=== PATIENT | female | born 1930 | race Caucasian/White ===

== ENCOUNTER 2017-10-06 09:57 | Inpatient (IN) | payer MEDICARE, OTHER ==
[~2017-10-06] VITALS: Ht 167.6 cm; Wt 70.5 kg
[~2017-10-06 09:57] MED LIST: ASCO500C15 PO; CHLO118M PO; CHOL100046 PO; DOCU-28 PO; HYDR-569 PO; LATA2.5D2 RIGHTEYE; LEVO50TA PO; LIDO700A5 TOP; METO25TA6 PO; RISE35TA PO; RIVA20TA PO; [UNRECOGNIZED DRUG - CODE] PO
[2017-10-06 11:16] LABS: BASOPHILS % (AUTO) 0 % (0-1); EOSINOPHILS # (AUTO) 0.4 X10'3 (0-0.9); EOSINOPHILS % (AUTO) 6.3 % (0-6); HEMATOCRIT 39.9 % (35.0-45.0); LYMPHOCYTES # (AUTO) 0.8 X10'3 (1.1-4.8); MEAN CORPUSCULAR HEMOGLOBIN 33.4 PG (27.0-31.0); MEAN CORPUSCULAR VOLUME 95.5 FL (78-98); MEAN PLATELET VOLUME 9.1 FL (7.4-10.4); MONOCYTES # (AUTO) 0.3 X10'3 (0-0.9); MONOCYTES % (AUTO) 3.9 % (2-12); NEUTROPHILS # (AUTO) 5.6 X10'3 (1.8-7.7); NEUTROPHILS % (AUTO) 78.8 % (42-75); PLATELET COUNT 112 X10'3 (140-440); RED BLOOD COUNT 4.17 X10'6 (4.20-5.60); RED CELL DISTRIBUTION WIDTH 16.1 % (11.5-14.5); WHITE BLOOD COUNT 7.1 X10'3 (4.5-11.0)
[2017-10-06 11:26] LABS: INR 1.2 INR; PARTIAL THROMBOPLASTIN TIME 27 SECONDS (22-32); PROTHROMBIN TIME 12.5 SECONDS (9.0-12.0)
[2017-10-06 11:32] LABS: ALANINE AMINOTRANSFERASE 31 U/L (12-78); ALBUMIN 3.1 G/DL (3.4-5.0); ALBUMIN/GLOBULIN RATIO 0.9 (1.1-1.5); ALKALINE PHOSPHATASE 72 IU/L (46-116); ANION GAP 11 (8-16); ASPARTATE AMINO TRANSFERASE 33 U/L (10-37); BILIRUBIN,TOTAL 0.8 MG/DL (0.1-1.0); BLOOD UREA NITROGEN 16 MG/DL (7-18); BUN/CREATININE RATIO 15.2 (6.6-38.0); CHLORIDE 103 MMOL/L (99-107); CREATININE 1.05 MG/DL (0.40-0.90); GLUCOSE 102 MG/DL (70-104); MAGNESIUM 2.1 MG/DL (1.5-2.4); POTASSIUM 4.2 MMOL/L (3.5-5.1); SODIUM 140 MMOL/L (135-145); TOTAL CARBON DIOXIDE 26.5 MMOL/L (24-32); TOTAL PROTEIN 6.6 G/DL (6.4-8.2); eGFR 50 ML/MIN
[2017-10-06] MEDS ORDERED: normal saline 1000ML IV soln IV ONE (12:10)
[2017-10-06] MEDS ORDERED: levoFLOXACIN-Levaquin 750MG/D5 150 ML IV ONE (12:10)
[2017-10-06] MEDS ORDERED: RISEDRONATE SODIUM 35 MG PO SCH (13:00)
[2017-10-06] MEDS ORDERED: HYDROcodone/acetaminophen 5mg/325mg tablet PO PRN (13:00)
[2017-10-06 17:03] LABS: CLARITY,URINE SLIGHTLY CLOUDY (Clear); COLOR,URINE YELLOW (Yellow); GLUCOSE, URINE NEGATIVE (Neg); KETONES,URINE NEGATIVE (Neg); LEUKOCYTE ESTERASE ,URINE SMALL (Neg); NITRITES, URINE NEGATIVE (Neg); OCCULT BLOOD,URINE NEGATIVE (Neg); PROTEIN,URINE NEGATIVE (Neg); UROBILINOGEN,URINE 0.2 E.U/dL (0.2-1.0)
[2017-10-06 17:05] LABS: UA COLLECTION TYPE OTHER
[2017-10-06] MEDS: rivaroxaban 20mg tablet PO SCH (17:07)
[2017-10-06 17:41] LABS: BACTERIA,URINE 4+ /HPF (Neg); RBC,URINE 0-2 /HPF (0-2); SQUAMOUS EPITHELIAL CELL,UR MANY /LPF (FEW)
[2017-10-06] MEDS ORDERED: methylPREDNISolone sod succ 125mg/2ml vial IV ONE (19:15)
[2017-10-06] MEDS ORDERED: pantoprazole 40 MG vial IV ONE (19:15)
[2017-10-06] MEDS: K and/or MAG REPLACEMENT MC SCH (19:25)
[2017-10-06] MEDS ORDERED: potassium Cl 40MEQ/NS 500ml 500 ML IV PRN ×2 (19:25)
[2017-10-06] MEDS ORDERED: magnesium Cl slow-release 64mg tablet PO PRN (19:25)
[2017-10-06] MEDS ORDERED: potassium Cl 20 mEq SR tablet PO PRN ×2 (19:25)
[2017-10-06] MEDS ORDERED: magnesium 4gm in 100ml NS 100 ML IV PRN (19:25)
[2017-10-06] MEDS ORDERED: magnesium 2GM in 50ml NS 50 ML IV PRN (19:25)
[2017-10-06] MEDS: ascorbic acid 500mg tablet PO SCH (20:00)
[2017-10-06] MEDS: normal saline 1000ml 1,000 ML IV SCH (20:31)
[2017-10-06] MEDS: docusate sod 100mg capsule PO SCH (20:32)
[2017-10-06] MEDS: metoprolol tartrate 12.5mg (1/2 tablet) PO SCH (20:32)
[2017-10-06] MEDS: heparin, porcine 5000 units/ml vial SQ SCH (20:36)
[2017-10-06] MEDS: latanoprost 0.005% 2.5ml ophthalmic drops RIGHTEYE SCH (21:00)
[2017-10-06] MEDS: methylPREDNISolone sod succ 125mg/2ml vial IV SCH (21:00)
[2017-10-06] MEDS: ipratropium/albuterol 3ml nebule NEB SCH (21:37)
[2017-10-06 21:51] LABS: ABG BASE EXCESS -3.4 mmol/L (-2.0-3.0); ABG HCO3 20.2 mmol/L (22.0-26.0); ABG OXYGEN SATURATION 92.6 % (95-98); ABG PCO2 (T) 31.1 mmHg (32.0-45.0); ABG PH (T) 7.426 (7.350-7.450); ABG PO2 (T) 63.6 mmHg (83-108); ALLEN'S TEST Positive; FCOHb 0.6 % (0.5-1.5); FMetHb 0.1 % (0.3-1.12); PATIENT TEMPERATURE 36.3; RESPIRATORY RATE (OBSERVED) 18 b/min; TOTAL HEMOGLOBIN 13.1 G/dl (12.0-16.0)
[2017-10-07 02:30] VITALS: BP 147/97
[2017-10-07 05:05] LABS: INR 1.5 INR; PROTHROMBIN TIME 15.4 SECONDS (9.0-12.0)
[2017-10-07 05:07] LABS: BASOPHILS % (AUTO) 0 % (0-1); EOSINOPHILS # (AUTO) 0.1 X10'3 (0-0.9); EOSINOPHILS % (AUTO) 1.2 % (0-6); HEMATOCRIT 35.9 % (35.0-45.0); HEMOGLOBIN 12.4 g/dl (12.0-16.0); LYMPHOCYTES # (AUTO) 0.3 X10'3 (1.1-4.8); LYMPHOCYTES % (AUTO) 5.6 % (21-51); MEAN CORPUSCULAR HEMOGLOBIN 32.8 PG (27.0-31.0); MEAN CORPUSCULAR HGB CONC 34.6 % (33.0-36.5); MEAN CORPUSCULAR VOLUME 94.9 FL (78-98); MEAN PLATELET VOLUME 9.6 FL (7.4-10.4); MONOCYTES % (AUTO) 0.7 % (2-12); NEUTROPHILS # (AUTO) 4.9 X10'3 (1.8-7.7); NEUTROPHILS % (AUTO) 92.5 % (42-75); PLATELET COUNT 92 X10'3 (140-440); RED BLOOD COUNT 3.78 X10'6 (4.20-5.60); RED CELL DISTRIBUTION WIDTH 16.6 % (11.5-14.5); WHITE BLOOD COUNT 5.3 X10'3 (4.5-11.0)
[2017-10-07] MEDS: normal saline 1000ml 1,000 ML IV SCH ×2 (05:15→07:23)
[2017-10-07 05:31] LABS: ALBUMIN 2.8 G/DL (3.4-5.0); ANION GAP 13 (8-16); BLOOD UREA NITROGEN 17 MG/DL (7-18); BUN/CREATININE RATIO 17.7 (6.6-38.0); CALCIUM 8.2 MG/DL (8.5-10.1); CHLORIDE 107 MMOL/L (99-107); CREATININE 0.96 MG/DL (0.40-0.90); GLUCOSE 200 MG/DL (70-104); MAGNESIUM 1.8 MG/DL (1.5-2.4); POTASSIUM 3.8 MMOL/L (3.5-5.1); SODIUM 141 MMOL/L (135-145); TOTAL CARBON DIOXIDE 21.5 MMOL/L (24-32); eGFR 55 ML/MIN
[2017-10-07] MEDS: metoprolol tartrate 12.5mg (1/2 tablet) PO SCH ×2 (07:17→20:59)
[2017-10-07] MEDS: calcium carbonate/vitamin D3 tablet PO SCH (07:18)
[2017-10-07] MEDS: vitamin D (cholecalciferol) 1,000 unit tablet PO SCH (07:18)
[2017-10-07] MEDS: levoTHYROXINE 25mcg tablet PO SCH (07:20)
[2017-10-07] MEDS: methylPREDNISolone sod succ 125mg/2ml vial IV SCH ×3 (07:20→21:00)
[2017-10-07] MEDS: LIDOcaine 5% patch TP SCH (07:21)
[2017-10-07] MEDS: levoFLOXACIN-Levaquin 750MG/D5 150 ML IV SCH (07:21)
[2017-10-07] MEDS: heparin, porcine 5000 units/ml vial SQ SCH ×2 (07:22→20:00)
[2017-10-07] MEDS: ascorbic acid 500mg tablet PO SCH ×2 (07:23→21:19)
[2017-10-07] MEDS: docusate sod 100mg capsule PO SCH ×2 (07:28→20:00)
[2017-10-07 07:30] VITALS: BP 163/93
[2017-10-07] MEDS: K and/or MAG REPLACEMENT MC SCH (08:00)
[2017-10-07] MEDS: ipratropium/albuterol 3ml nebule NEB SCH ×2 (09:18→19:48)
[2017-10-07] MEDS ORDERED: Permethrin Cream 60gm TP ONE (12:35)
[2017-10-07] MEDS ORDERED: Ivermectin 3mg tablet PO SCH (12:35)
[2017-10-07 12:45] VITALS: BP 137/72
[2017-10-07] MEDS ORDERED: furosemide 20 MG/2 ML vial IV ONE (16:15)
[2017-10-07] MEDS: rivaroxaban 20mg tablet PO SCH (17:23)
[2017-10-07 19:15] VITALS: BP 156/80
[2017-10-07] MEDS: lactobacillus rhamnosus 10,000 MMU CELLS/CAPSULE PO SCH (20:59)
[2017-10-07] MEDS: latanoprost 0.005% 2.5ml ophthalmic drops RIGHTEYE SCH (21:00)
[2017-10-07 23:00] VITALS: BP 145/84
[2017-10-08 08:00] VITALS: BP 152/85
[2017-10-08] MEDS: heparin, porcine 5000 units/ml vial SQ SCH (08:00)
[2017-10-08] MEDS: LIDOcaine 5% patch TP SCH (08:00)
[2017-10-08] MEDS: K and/or MAG REPLACEMENT MC SCH (08:00)
[2017-10-08] MEDS: docusate sod 100mg capsule PO SCH ×2 (08:00→20:00)
[2017-10-08] MEDS: ipratropium/albuterol 3ml nebule NEB SCH ×3 (08:43→19:34)
[2017-10-08] MEDS: levoFLOXACIN-Levaquin 750MG/D5 150 ML IV SCH (09:40)
[2017-10-08] MEDS: calcium carbonate/vitamin D3 tablet PO SCH (09:41)
[2017-10-08] MEDS: methylPREDNISolone sod succ 125mg/2ml vial IV SCH ×3 (09:41→20:35)
[2017-10-08] MEDS: metoprolol tartrate 12.5mg (1/2 tablet) PO SCH ×2 (09:41→20:34)
[2017-10-08] MEDS: levoTHYROXINE 25mcg tablet PO SCH (09:41)
[2017-10-08] MEDS: vitamin D (cholecalciferol) 1,000 unit tablet PO SCH (09:41)
[2017-10-08] MEDS: lactobacillus rhamnosus 10,000 MMU CELLS/CAPSULE PO SCH ×2 (09:42→20:35)
[2017-10-08] MEDS: ascorbic acid 500mg tablet PO SCH ×2 (09:44→20:35)
[2017-10-08 11:00] VITALS: BP 142/83
[2017-10-08] MEDS: rivaroxaban 20mg tablet PO SCH (17:35)
[2017-10-08 20:00] VITALS: BP 132/76
[2017-10-08] MEDS: latanoprost 0.005% 2.5ml ophthalmic drops RIGHTEYE SCH (20:43)
[2017-10-09] VITALS: BP 141/88
[2017-10-09 07:30] VITALS: BP 165/94
[2017-10-09] MEDS: K and/or MAG REPLACEMENT MC SCH (08:00)
[2017-10-09] MEDS: ipratropium/albuterol 3ml nebule NEB SCH (08:18)
[2017-10-09] MEDS: metoprolol tartrate 12.5mg (1/2 tablet) PO SCH (08:36)
[2017-10-09] MEDS: methylPREDNISolone sod succ 125mg/2ml vial IV SCH ×2 (08:36→13:00)
[2017-10-09] MEDS: vitamin D (cholecalciferol) 1,000 unit tablet PO SCH (08:37)
[2017-10-09] MEDS: levoFLOXACIN-Levaquin 750MG/D5 150 ML IV SCH (08:37)
[2017-10-09] MEDS: docusate sod 100mg capsule PO SCH (08:37)
[2017-10-09] MEDS: calcium carbonate/vitamin D3 tablet PO SCH (08:37)
[2017-10-09] MEDS: lactobacillus rhamnosus 10,000 MMU CELLS/CAPSULE PO SCH (08:37)
[2017-10-09] MEDS: ascorbic acid 500mg tablet PO SCH (08:37)
[2017-10-09] MEDS: levoTHYROXINE 25mcg tablet PO SCH (08:43)
[2017-10-09] MEDS ORDERED: LEVO500T2 PO (15:12)
== END 2017-10-09 16:23 | disposition home or self-care (01) | DRG 291 ==
LOC: ER 09:57 → ED HOLD 12:53 → SUR 3N 10-07 02:47
PROVIDERS: ADMIT Internal Medicine; ATTEND Internal Medicine
DX: I11.0 Hypertensive heart disease with heart failure (principal); G93.41 Metabolic encephalopathy; J96.01 Acute respiratory failure with hypoxia; J15.9 Unspecified bacterial pneumonia; I48.91 Unspecified atrial fibrillation; F03.90 Unspecified dementia, unspecified severity, without behavioral disturbance, psychotic disturbance, mood disturbance, and anxiety; N39.0 Urinary tract infection, site not specified; J44.0 Chronic obstructive pulmonary disease with (acute) lower respiratory infection; I50.33 Acute on chronic diastolic (congestive) heart failure; E03.9 Hypothyroidism, unspecified; M81.0 Age-related osteoporosis without current pathological fracture; G89.4 Chronic pain syndrome; H40.9 Unspecified glaucoma; Z91.013 Allergy to seafood; Z79.899 Other long term (current) drug therapy; Z82.49 Family history of ischemic heart disease and other diseases of the circulatory system
CPT/HCPCS: 36415; 36600; 70450; 71045; 71250; 80048; 80053; 81001; 82803; 83605; 83735; 83880; 84145; 85018; 85025; 85610; 85730; 87040; 87070; 87502; 87503; 93005; 93306; 94640; 94760; 97110; 97116; 97162; 99285; C9113; J1644; J1940; J1956; J2930; J7030

== ENCOUNTER 2017-10-10 13:25 | Emergency (ER) | payer MEDICARE, OTHER ==
[~2017-10-10] VITALS: Ht 167.6 cm; Wt 57.7 kg
[~2017-10-10 13:25] MED LIST changes: +LEVO500T2 PO
[2017-10-10 14:34] LABS: BASOPHILS % (AUTO) 0.2 % (0-1); EOSINOPHILS % (AUTO) 0 % (0-6); HEMATOCRIT 38.5 % (35.0-45.0); HEMOGLOBIN 13.2 g/dl (12.0-16.0); LYMPHOCYTES % (AUTO) 8.8 % (21-51); MEAN CORPUSCULAR HEMOGLOBIN 33.4 PG (27.0-31.0); MEAN CORPUSCULAR HGB CONC 34.3 % (33.0-36.5); MEAN CORPUSCULAR VOLUME 97.2 FL (78-98); MONOCYTES # (AUTO) 0.6 X10'3 (0-0.9); MONOCYTES % (AUTO) 4.9 % (2-12); NEUTROPHILS % (AUTO) 86.1 % (42-75); PLATELET COUNT 175 X10'3 (140-440); RED BLOOD COUNT 3.96 X10'6 (4.20-5.60); WHITE BLOOD COUNT 11.6 X10'3 (4.5-11.0)
[2017-10-10 14:46] LABS: INR 1.9 INR; PARTIAL THROMBOPLASTIN TIME 30 SECONDS (22-32); PROTHROMBIN TIME 19.1 SECONDS (9.0-12.0)
[2017-10-10 14:50] LABS: ALANINE AMINOTRANSFERASE 78 U/L (12-78); ALBUMIN 3.4 G/DL (3.4-5.0); ALBUMIN/GLOBULIN RATIO 0.9 (1.1-1.5); ALKALINE PHOSPHATASE 74 IU/L (46-116); ANION GAP 7 (8-16); ASPARTATE AMINO TRANSFERASE 55 U/L (10-37); BILIRUBIN,TOTAL 0.8 MG/DL (0.1-1.0); BLOOD UREA NITROGEN 27 MG/DL (7-18); BUN/CREATININE RATIO 22.3 (6.6-38.0); CALCIUM 8.9 MG/DL (8.5-10.1); CHLORIDE 99 MMOL/L (99-107); CREATININE 1.21 MG/DL (0.40-0.90); GLUCOSE 81 MG/DL (70-104); POTASSIUM 3.8 MMOL/L (3.5-5.1); SODIUM 135 MMOL/L (135-145); TOTAL CARBON DIOXIDE 28.7 MMOL/L (24-32); TOTAL PROTEIN 7.1 G/DL (6.4-8.2); eGFR 42 ML/MIN
[2017-10-10] MEDS ORDERED: acetaminophen 325mg tablet PO ONE (15:15)
[2017-10-10 15:27] VITALS: BP 142/90
== END 2017-10-10 15:39 | disposition home or self-care (01) ==
LOC: ER 13:26
DX: S70.02XA Contusion of left hip, initial encounter (principal); F03.90 Unspecified dementia, unspecified severity, without behavioral disturbance, psychotic disturbance, mood disturbance, and anxiety; I48.91 Unspecified atrial fibrillation; I10 Essential (primary) hypertension; E03.9 Hypothyroidism, unspecified; G89.29 Other chronic pain; Z98.890 Other specified postprocedural states; Z91.013 Allergy to seafood; Z79.899 Other long term (current) drug therapy; W19.XXXA Unspecified fall, initial encounter; Y93.89 Activity, other specified; Y92.89 Other specified places as the place of occurrence of the external cause; Y99.9 Unspecified external cause status
CPT/HCPCS: 36415; 71045; 73502; 80053; 85025; 85610; 85730; 86885; 86900; 86901; 93005; 99285

== ENCOUNTER 2017-12-26 12:56 | Emergency (ER) | payer OTHER ==
[~2017-12-26] VITALS: Ht 168.9 cm; Wt 60.0 kg
[~2017-12-26 12:56] MED LIST changes: -LEVO500T2 PO
[2017-12-26 13:20] LABS: BASOPHILS % (AUTO) 0.2 % (0-1); EOSINOPHILS # (AUTO) 0.2 X10'3 (0-0.9); EOSINOPHILS % (AUTO) 3.2 % (0-6); HEMATOCRIT 40.1 % (35.0-45.0); HEMOGLOBIN 13.8 g/dl (12.0-16.0); LYMPHOCYTES % (AUTO) 17.3 % (21-51); MEAN CORPUSCULAR HEMOGLOBIN 33.1 PG (27.0-31.0); MEAN CORPUSCULAR HGB CONC 34.3 % (33.0-36.5); MEAN CORPUSCULAR VOLUME 96.3 FL (78-98); MEAN PLATELET VOLUME 8.6 FL (7.4-10.4); MONOCYTES # (AUTO) 0.4 X10'3 (0-0.9); MONOCYTES % (AUTO) 7.2 % (2-12); NEUTROPHILS # (AUTO) 4.2 X10'3 (1.8-7.7); NEUTROPHILS % (AUTO) 72.1 % (42-75); PLATELET COUNT 192 X10'3 (140-440); RED BLOOD COUNT 4.16 X10'6 (4.20-5.60); RED CELL DISTRIBUTION WIDTH 13.6 % (11.5-14.5); WHITE BLOOD COUNT 5.8 X10'3 (4.5-11.0)
[2017-12-26] MEDS ORDERED: normal saline 1000ML IV soln IVB ONE (13:25)
[2017-12-26 13:30] LABS: INR 1.6 INR; PROTHROMBIN TIME 16.1 SECONDS (9.0-12.0)
[2017-12-26 13:39] LABS: ALANINE AMINOTRANSFERASE 61 U/L (12-78); ALBUMIN 3.6 G/DL (3.4-5.0); ALKALINE PHOSPHATASE 154 IU/L (46-116); ANION GAP 9 (8-16); ASPARTATE AMINO TRANSFERASE 46 U/L (10-37); BILIRUBIN,TOTAL 0.5 MG/DL (0.1-1.0); BLOOD UREA NITROGEN 12 MG/DL (7-18); CALCIUM 8.9 MG/DL (8.5-10.1); CHLORIDE 102 MMOL/L (99-107); CREATININE 0.86 MG/DL (0.40-0.90); GLUCOSE 106 MG/DL (70-104); POTASSIUM 3.9 MMOL/L (3.5-5.1); SODIUM 140 MMOL/L (135-145); TOTAL CARBON DIOXIDE 28.7 MMOL/L (24-32); TOTAL PROTEIN 7.2 G/DL (6.4-8.2); eGFR 62 ML/MIN
[2017-12-26 14:49] LABS: CLARITY,URINE CLEAR (Clear); COLOR,URINE YELLOW (Yellow); GLUCOSE, URINE NEGATIVE (Neg); KETONES,URINE NEGATIVE (Neg); LEUKOCYTE ESTERASE ,URINE NEGATIVE (Neg); NITRITES, URINE NEGATIVE (Neg); OCCULT BLOOD,URINE NEGATIVE (Neg); PH,URINE 6.5 (4.8-8.0); PROTEIN,URINE NEGATIVE (Neg); UROBILINOGEN,URINE 0.2 E.U/dL (0.2-1.0)
[2017-12-26 14:52] LABS: UA COLLECTION TYPE CLN CATCH MIDSTREAM
[2017-12-26 15:03] VITALS: BP 132/89
== END 2017-12-26 21:34 | disposition home or self-care (01) ==
LOC: ER 12:56
DX: S05.12XA Contusion of eyeball and orbital tissues, left eye, initial encounter (principal); S05.11XA Contusion of eyeball and orbital tissues, right eye, initial encounter; R55 Syncope and collapse; I48.91 Unspecified atrial fibrillation; I10 Essential (primary) hypertension; E03.9 Hypothyroidism, unspecified; G89.29 Other chronic pain; Z98.890 Other specified postprocedural states; Z60.2 Problems related to living alone; Z79.899 Other long term (current) drug therapy; X58.XXXA Exposure to other specified factors, initial encounter; Y93.89 Activity, other specified; Y92.89 Other specified places as the place of occurrence of the external cause; Y99.8 Other external cause status
CPT/HCPCS: 36415; 71045; 80053; 81003; 83735; 83880; 84484; 85025; 85610; 93005; 99285; J7030

== ENCOUNTER 2018-10-31 16:56 | Emergency (ER) | payer OTHER ==
[~2018-10-31] VITALS: Ht 167.6 cm; Wt 57.7 kg
[~2018-10-31 16:56] MED LIST changes: +HYDR-4383 PO; -HYDR-569 PO
[2018-10-31 16:59] VITALS: BP 127/75
--- NOTE | 2018-10-31 18:57 | NUR ---
PT HAS 2+ EDEMA TO R FOOT, DENIES INJURY OR TRAUMA. 2+DP NOTED ALONG WITH DISCOLORED 2ND TOE. XRAY ORDERED PER PROTOCOL, AWAITING MD.
[2018-10-31] MEDS ORDERED: CEPH250T PO (20:09)
[2018-10-31] MEDS ORDERED: cephalexin 250mg capsule PO ONE (20:15)
== END 2018-10-31 20:18 | disposition home or self-care (01) ==
LOC: ER 16:56
DX: L03.115 Cellulitis of right lower limb (principal); I48.91 Unspecified atrial fibrillation; I10 Essential (primary) hypertension; E03.9 Hypothyroidism, unspecified; G89.29 Other chronic pain; I25.2 Old myocardial infarction; Z91.013 Allergy to seafood; Z79.2 Long term (current) use of antibiotics; Z79.899 Other long term (current) drug therapy; W18.39XA Other fall on same level, initial encounter; Y93.89 Activity, other specified; Y92.89 Other specified places as the place of occurrence of the external cause; Y99.8 Other external cause status
CPT/HCPCS: 73630; 99284